=== PATIENT | male | born 1970 | race Caucasian/White ===

== ENCOUNTER 2016-11-11 13:01 | Emergency (ER) | payer OTHER ==
[2016-11-11] VITALS (11 sets, daily range): BP systolic 126–204; BP diastolic 69–150; PULSE 77–84; RESP 14–30; O2SAT 95–99
[~2016-11-11] VITALS: Ht 180.3 cm; Wt 119.1 kg
[2016-11-11] MEDS ORDERED: 0.9% Sodium Chloride 1,000 ML IV ONE (13:26)
--- NOTE | 2016-11-11 13:26 | ED.REPORT ---
HPI-General Illness Date of Service Nov 11, 2016 ED Provider: Darrin Rodriguez DO Pt is a 45 y.o. male with hx of asthma and urostomy secondary to kidney stones who presents to the ED c/o severe right flank pain onset prior to arrival. Pt states that he felt fine this morning. He went out to lunch and when he sat down to eat he felt like he needed to have a BM then he began to notice that he had pain similar to his last kidney stone. He reports that it progressed rapidly since onset. Upon examination he states that his pain has improved and is now a 4/10. He denies fever, hematuria, abdominal pain, constipation, and diarrhea. Nursing Notes Stated Complaint: KIDNEY STONES Chief Complaint: Back Pain or Injury Nursing Notes Reviewed: Yes Allergies: Coded Allergies: No Known Allergies (Unverified , 11/11/16) Scheduled PRN Albuterol HFA (Proair HFA) 8.5 Gm Hfa.aer.ad 2 PUFFS INHALATION Q4H PRN PRN For Shortness of Breath Naproxen (Naproxen) 500 Mg Tab 500 MG PO BID PRN PRN For Pain Oxycodone (Roxicodone) 5 Mg Tablet 5-10 MG PO Q4H PRN PRN For Pain Miscellaneous Medications Sildenafil Citrate (Viagra) 50 Mg Tablet Unknown Dose PO General Time Seen by MD: 13:25 Chief Complaint Other (Flank pain, right) Hx Obtained From: Patient Arrived By: Walk-in Sudden in Onset?: Yes Onset Occurred: Just prior to arrival Symptom Duration: Since onset Quality: Painful Severity: Current: Pain level 4 out of 10 Severity: Maximum: Severe Similar Sx Previous: Yes Past Medical History Past Medical History Kidney stones Reports: Asthma Past Surgical History Urostomy Review of Systems Full Review of Systems Constitutional: Denies: Fever GI: Denies: Abdominal pain, Constipation, Diarrhea Male: Reports Flank pain, Denies Hematuria Complete sys rev & neg: except as marked. Physical Exam Vital Signs Vital Signs Date Time Temp Pulse Resp B/P Pulse Ox O2 Delivery O2 Flow Rate FiO2 11/11/16 14:39 82 134/83 95 Room Air 11/11/16 14:38 82 147/85 11/11/16 14:16 77 16 137/79 96 Room Air 11/11/16 13:31 78 164/100 11/11/16 13:28 78 173/103 11/11/16 13:27 78 204/115 11/11/16 13:15 36.9 78 28 200/150 99 Room Air 11/11/16 13:04 36.2 84 30 186/128 99 Room Air Initial VS: Reviewed General/Constitutional: Awake, Alert, Well appearing, Well developed, Well hydrated, Well nourished, Not toxic appearing Appearance / Presentation: Positive: In pain, Obese Respiratory / Chest: Atraumatic, Breath sounds NL, No respiratory distress Cardiovascular: Heart rate NL, Regular rhythm, Peripheral circulation NL Hypertensive upon examination Abdomen: Atraumatic, Soft, Non-tender, No guarding, No rebound, No distention Back: Atraumatic, Inspection NL, No CVA tenderness Skin: Atraumatic, Color NL, Warm, Intact Color / Condition: Positive: Diaphoresis present Interpretation & Diagnostics Lab Results Interpretation Result Diagram: 11/11/16 1300 11/11/16 1300 Test 11/11/16 13:00 11/11/16 14:25 White Blood Count 7.9th/mm3 (3.8-10.1) Red Blood Count 5.61mil/mm3 (4.40-5.80) Hemoglobin 16.8g/dL (13.8-17.2) Hematocrit 47.8% (41.0-50.0) Mean Corpuscular Volume 85.2fL (81-100) Mean Corpuscular Hemoglobin 29.9pg (27.0-35.0) Mean Corpuscular Hemoglobin Concent 35.1% (32.0-37.0) Red Cell Distribution Width 12.3% (12.3-15.4) Platelet Count 255bil/L (150-400) Neutrophils (%) (Auto) 45.0% (40-74) Lymphocytes (%) (Auto) 43.3% (14-46) Monocytes (%) (Auto) 9.4% (4-12) Eosinophils (%) (Auto) 1.9% (0-5) Basophils (%) (Auto) 0.3% (0-3) Prothrombin Time 10.9sec (8.1-12.5) Prothromb Time International Ratio 1.02ratio Sodium Level 141mEq/L (134-144) Potassium Level 4.2mEq/L (3.5-5.2) Chloride Level 100mEq/L (97-108) Carbon Dioxide Level 22mmol/L (18-29) Blood Urea Nitrogen 14mg/dL (6-24) Creatinine 1.28mg/dL (0.76-1.27) Estimat Glomerular Filtration Rate 64mL/min (>59) Glucose Level 110mg/dL (60-99) Lactic Acid Level 4.0mmol/L (0.4-2.0) Calcium Level 9.7mg/dL (8.5-10.1) Magnesium Level 2.1mg/dL (1.6-2.6) Total Bilirubin 0.7mg/dL (0.0-1.2) Aspartate Amino Transf (AST/SGOT) 26U/L (0-50) Alanine Aminotransferase (ALT/SGPT) 39U/L (0-44) Alkaline Phosphatase 102U/L (25-150) Total Protein 7.7g/dL (6.4-8.4) Albumin 4.7g/dL (3.4-5.0) Lipase 26U/L (13-60) Hold Urine Received (Received) CT Abd / Pelvis Interpretation IMPRESSION: 1. Negative CT angiography of the aorta. 2. Right ureterovesical junction calculus associated with mild right hydronephrosis. 3. Nonobstructing bilateral inferior pole nephroliths. 4. Hepatic steatosis. 5. Normal appendix. Dictated by: Rebeca Forrester M.D. on 11/11/2016 at 14:48 Approved by: Rebeca Forrester M.D. on 11/11/2016 at 14:52 Re-Eval/Medical Decision Med Decision/Clinical Course Sudden onset of flank pain with profound hypertension, differential diagnosis included kidney stone as well as aortic dissection, patient's lactic acid came back significantly elevated which may have been a sign of organ ischemia at this along with a severely elevated blood pressure prompted a CT angios of the chest. there is no vascular problem with this patient's aorta however he does have a right-sided kidney stone. Of note his lactic level significantly elevated without signs of ischemia and the patient is feeling better however a second lactic acid level will be drawn to ensure that this is improving. He will be discharged with naproxen and oxycodone. Strict return and follow-up precautions are given. Source of Hx: Old records Time of Eval: 15:06 Patient Status: Pain improved Re-Evaluation/Progress Note: Pt rechecked. Pt states his pain is improved. Discussed CT imaging and plan for discharge if lactic improves, pt understands and agrees with plan. Counseled Regarding: Diagnosis, Lab results, Need for follow-up, When/why to return to ED Discharge & Departure Primary Impression: Kidney stone Disposition: Home Discharge Condition All VS Reviewed: Yes Condition: Improved Additional Instructions: You have a kidney stone at the junction of your ureter and bladder that likely, is the cause of your pain today. Additionally you have more stones within the kidney, these do not cause pain. Use naproxen and Tylenol [id number] until you have passed the stone. Use oxycodone for breakthrough pain. He care doctor and a urologist. Strain your urine in order to capture the stone. You should return to the ER if you develop a high fever, intractable vomiting, intractable pain, or other concerns. Oseiibe Attestation Portions of this note were transcribed by Saroj Felton. I, Dr. Rodriguez personally performed the history, physical exam and medical decision-making; I reviewed and confirmed the accuracy of the information in the transcribed note. Signed by: Dulce Alfaro, 11/11/16 and 1523. Darrin Rodriguez DO Nov 11, 2016 13:26 SAROJ FELTON Nov 11, 2016 13:34
[2016-11-11] MEDS ORDERED: HYDROmorphone 1 mg/mL Inj IVPUSH PRN (13:30)
[2016-11-11] MEDS ORDERED: Ondansetron 2 mg/mL 2 mL Inj IVPUSH PRN (13:30)
[2016-11-11 13:57] LABS: BASOPHILS % (AUTO) 0.3 % (0-3); EOSINOPHILS % (AUTO) 1.9 % (0-5); MONOCYTES % (AUTO) 9.4 % (4-12); Mean Corpuscular Hemoglobin 29.9 pg (27.0-35.0); Mean Corpuscular Volume 85.2 fL (81-100); Platelet Count 255 bil/L (150-400)
[2016-11-11 14:01] LABS: INR 1.02 ratio
[2016-11-11 14:08] LABS: Magnesium 2.1 mg/dL (1.6-2.6)
[2016-11-11] MEDS ORDERED: ALBU8.5H2 INHALATION (14:23)
[2016-11-11] MEDS ORDERED: SILD50TA PO (14:24)
--- NOTE | 2016-11-11 14:54 | DRSVH ---
PROCEDURE: CT ANG CHEST/ABD/PEL W/WO CIBTRAST (PNL-7502) INDICATIONS: sudden onset R flank pain, hypertension, TECHNIQUE: Precontrast 5 mm thick sections acquired from the lung apices to the iliac crests. After the adminis tration of intravenous contrast, 3 mm thick sections again acquired from the lung apices to the iliac crests. 3-dimensional maximum intensity projection (MIP) oblique sagittal and coronal reformats wer e then acquired, and/or 3-dimensional volume rendering reformats. For radiation dose reduction, the following was used: automated exposure control. COMPARISON: None. FINDINGS: Image quality: Excellent. AORTA: The thoracic and abdominal aorta are patent with no evidence of dissection, aneurysm, nor collin nosis. CHEST: Lungs and pleura: No acute airspace opacities. Mild scarring within the right upper lobe anteromedi ally. No pleural effusions or pneumothorax. Central and peripheral airways are patent and normal in caliber. Mediastinum: Heart size is normal. No pericardial effusion. No mediastinal or hilar adenopathy by size criteria. Central pulmonary arteries are normal in size. Esophagus is normal in caliber. No h iatal hernias. Bones and chest wall: No axillary adenopathy by size criteria. Thyroid gland is within normal limit s. No suspicious bony lesions. No vertebral body compression fractures. ABDOMEN: Vasculature: Celiac trunk and mesenteric arteries are patent. Renal arteries are also patent. Solid organs: Liver is mildly enlarged, measuring 17.6 cm craniocaudal, and demonstrates diffusely d ecreased density, indicating fatty infiltration. Gallbladder is within normal limits. Biliary system is non dilated. Pancreas enhances normally. No adrenal nodules. Both kidneys are normal in size a nd enhancement. No left hydronephrosis. Mild right hydronephrosis. Nonobstructing 2 mm diameter calcu argentina in the inferior pole left kidney is present. Nonobstructing 6 mm diameter calculus in the inferio r pole right kidney. There is mild diffuse right ureteral dilatation. There is a 4 mm diameter right ureterovesical junction calculus. Urinary bladder is grossly unremarkable. Peritoneum and bowel: No free fluid or air. Bowel loops are normal in caliber and wall thickness. Normal appendix. Nodes and vessels: No retroperitoneal or mesenteric adenopathy by size criteria. Inferior vena cava is normal in morphology. Bones: No suspicious bony lesions. No vertebral body compression fractures. Miscellaneous: No ventral hernias. IMPRESSION: 1. Negative CT angiography of the aorta. 2. Right ureterovesical junction calculus associated with mild right hydronephrosis. 3. Nonobstructing bilateral inferior pole nephroliths. 4. Hepatic steatosis. 5. Normal appendix. Dictated by: Rebeca Forrester M.D. on 11/11/2016 at 14:48 Approved by: Rebeca Forrester M.D. on 11/11/2016 at 14:52
[2016-11-11] MEDS ORDERED: OXYC-474 PO (15:21)
[2016-11-11] MEDS ORDERED: NPR500T PO (15:21)
== END 2016-11-11 17:30 | disposition home or self-care (01) ==
LOC: SED 13:01
DX: N20.0 Calculus of kidney (principal); J45.909 Unspecified asthma, uncomplicated
CPT/HCPCS: 36415; 71275; 74174; 80053; 83605; 83690; 83735; 85025; 85610; 96361; 96374; 96375; 96376; 99285; J2270; J2405; J7030; Q9967